=== PATIENT | female | born 1945 | race American Indian/Alaskan Native ===

== ENCOUNTER 2016-09-01 19:45 | Emergency (ER) | payer OTHER ==
--- NOTE | 2016-09-01 20:11 | EDPHY ---
H & P Stated Complaint: CONSTIPATION Time Seen by Provider: 09/01/16 20:10 HPI/ROS: CHIEF COMPLAINT: Severe constipation HISTORY OF PRESENT ILLNESS: The patient presents to the ED with complaints of severe constipation. She has a history of this condition. It recently was exacerbated by a long car ride. She has been trying [id number] medications and enemas without improvement. The patient complains of a colicky severe rectal and upper abdominal pain. She denies vomiting. The patient denies history of recent abdominal surgery. Past surgical history is significant for section. Patient denies associated fever, dysuria or additional acute medical complaints. REVIEW OF SYSTEMS: A comprehensive 10 point review of systems is otherwise negative aside from elements mentioned in the history of present illness. Source: Patient Exam Limitations: No limitations - Personal History Current Tetanus/Diphtheria Vaccine: Yes Current Tetanus Diphtheria and Acellular Pertussis (TDAP): Yes Tetanus Vaccine Date: 2009 - Medical/Surgical History Hx Asthma: No Hx Chronic Respiratory Disease: No Hx Diabetes: No Hx Cardiac Disease: Yes Hx Renal Disease: No Hx Cirrhosis: No Hx Alcoholism: No Hx HIV/AIDS: No Hx Splenectomy or Spleen Trauma: No Other PMH: sleep apnea(c pap), HTN, left shoulder humerus fracture, C Section, tonsillectomy, appy, right forearm surgery, hemorrhoidectomy, colonoscopy - Social History Smoking Status: Never smoked - Physical Exam Exam: General Appearance: Alert, mild discomfort secondary to pain Eyes: Pupils equal and round no pallor or injection ENT, Mouth: Mucous membranes moist Respiratory: There are no retractions, lungs are clear to auscultation Cardiovascular: Regular rate and rhythm Rectal examination: Large amount of stool noted in the rectal vault, bright red blood per rectum after digital rectal examination and this impaction Gastrointestinal: Tenderness to palpation throughout the upper abdomen and left lower quadrant Neurological: 5/5 strength noted all 4 extremities Skin: Warm and dry, no rashes Musculoskeletal: Neck is supple nontender Extremities: symmetrical, full range of motion Constitutional: Initial Vital Signs Temperature (C) 36.4 C 09/01/16 19:59 Heart Rate 74 09/01/16 19:59 Respiratory Rate 18 09/01/16 19:59 Blood Pressure 167/91 H 09/01/16 19:59 O2 Sat (%) 99 09/01/16 19:59 O2 Delivery Mode Room Air Allergies/Adverse Reactions: No Known Allergies Allergy (Unverified 03/13/10 21:58) Home Medications: Medication Instructions Recorded [email or web address] 03/13/10 Valium 03/13/10 Medical Decision Making - Diagnostics Imaging Results: Imaging Impressions Abdomen X-Ray 09/01/16 21:50 Impression: Negative exam. ED Course/Re-evaluation: The patient presents to the ED with a fecal impaction and complaints of constipation. I did manually disimpact the patient. The patient also received mineral oil enema. The patient did not have much of a bowel movement after receiving a mineral oil enema. She had an IV established. She received a L of normal saline. She received 15 mg of IV Toradol. The patient does have some stool noted in the right side of her colon. The patient will receive magnesium citrate in the emergency department. She is comfortable going home and returning to the ED for any worsening symptoms or other concerns. Differential Diagnosis: Differential diagnosis considered includes constipation, small-bowel obstruction , fecal impaction Departure - Departure Disposition: Home, Routine, Self-Care Clinical Impression: Constipation Condition: Good Instructions: Constipation (ED), High Fiber Diet (ED) Additional Instructions: 1. Please return to the ED for severe pain, vomiting or other concerns. 2. Please continue your regular laxative medications and treatment for your chronic constipation. 3. You may use milk of magnesia as needed. Please follow up with your primary care provider as scheduled. Referrals: NARENDRA TY [Other] - As per Instructions
[2016-09-01] MEDS ORDERED: NS 1,000 ML IV ONE (22:18)
[2016-09-01] MEDS ORDERED: KETOROLAC 15 MG/1 ML SDV IVP ONE (22:39)
[2016-09-01] MEDS ORDERED: KETOROLAC 15 MG/1 ML SDV ONE (22:40)
[2016-09-01] MEDS ORDERED: MAGNESIUM CITRATE 300 ML BOTTLE PO ONE (22:40)
[2016-09-01 23:13] VITALS: BP 149/88; PULSE 76; RESP 16; TEMP 98.2; O2SAT 94
== END 2016-09-01 23:13 | disposition home or self-care (01) ==
DX: K59.00 Constipation, unspecified (principal); I10 Essential (primary) hypertension
CPT/HCPCS: 74000; 96374; 99284; J1885